=== PATIENT | female | born 1995 | race Caucasian/White ===

== ENCOUNTER 2019-11-29 10:57 | Emergency (ER) | payer BC, OTHER ==
--- NOTE | 2019-11-29 11:10 | ED ---
Throat Pain/Nasal Congestion - HPI Summary HPI Summary: 24 y/o F presenting [facility] c/o left sided jaw pain rated 4/10 starting 4 days ago. Patient woke up and felt that her upper jaw had shifted to the left. Similar has happened to her lower jaw in the past. She states it will usually resolve on its own. However this time, she reports worsening jaw pain. She is unable to open her mouth and unable to eat. She can only drink. Last night her jaw slightly shifted back in to place but not all the way. Symptoms aggravated by nothing. Symptoms alleviated by nothing. Medications reviewed. Allergies reviewed. - History of Current Complaint Chief Complaint: EDFacialInjury Time Seen by Provider: 11/29/19 11:04 Hx Obtained From: Patient Onset/Duration: Lasting Days - 4, Still Present Severity: Moderate - Allergies/Home Medications Allergies/Adverse Reactions: Allergies Allergy/AdvReac Type Severity Reaction Status Date / Time No Known Allergies Allergy Verified 11/29/19 11:02 Home Medications: Home Medications NK [No Home Medications Reported] 11/29/19 [History Confirmed 11/29/19] PMH/Surg Hx/FS Hx/Imm Hx Endocrine/Hematology History: Denies: Hx Diabetes Cardiovascular History: Denies: Hx Congestive Heart Failure, Hx Hypertension Psychiatric History: Reports: Hx Anxiety - Surgical History Surgery Procedure, Year, and Place: APPENDECTOMY 2012 Infectious Disease History: No Infectious Disease History: Denies: Traveled Outside the [place] in Last 30 Days - Family History Known Family History: Positive: Other - NEG: ovarian cyst, appendicitis - Social History Alcohol Use: Rare Substance Use Type: Reports: None Hx Tobacco Use: No Smoking Status (MU): Never Smoked Tobacco Review of Systems Negative: Fever Positive: Other - left sided jaw pain All Other Systems Reviewed And Are Negative: Yes Physical Exam - Summary Physical Exam Summary: Constitutional: Well-developed, Well-nourished, Alert. (-) Distressed Skin: Warm, Dry HENT: Normocephalic; Atraumatic; left TMJ tenderness; trismus Eyes: Conjunctiva normal Neck: Musculoskeletal ROM normal neck. (-) JVD, (-) Stridor, (-) Nuchal rigidity Cardio: Rhythm regular, rate normal, Heart sounds normal; Intact distal pulses; Radial pulses are 2+ and symmetric. (-) Murmur Pulmonary/Chest wall: Effort normal. (-) Respiratory distress, (-) Wheezes, (-) Rales Abd: Soft, (-) tenderness, (-) Distension, (-) Guarding, (-) Rebound Musculoskeletal: (-) Edema Lymph: (-) Cervical adenopathy Neuro: Alert, Oriented x3 Psych: Mood and affect Normal Triage Information Reviewed: Yes Vital Signs On Initial Exam: Initial Vitals Temp Pulse Resp BP Pulse Ox 98.2 F 88 19 160/114 100 11/29/19 11:00 11/29/19 11:00 11/29/19 11:00 11/29/19 11:00 11/29/19 11:00 Vital Signs Reviewed: Yes Procedures - Sedation Patient Received Moderate/Deep Sedation with Procedure: No Diagnostics - Vital Signs Vital Signs Temp Pulse Resp BP Pulse Ox 11/29/19 11:00 98.2 F 88 19 160/114 100 - Laboratory Lab Statement: Any lab studies that have been ordered have been reviewed, and results considered in the medical decision making process. - CT MAXILLOFACIAL CT Interpretation Completed By: Radiologist - IMPRESSION: NO FACIAL FRACTURE. NO MALOCCLUSION OR JOINT TEMPOROMANDIBULAR DISLOCATION. IF THERE IS CLINICAL CONCERN FOR INTERNAL DERANGEMENT OF THE TEMPOROMANDIBULAR JOINTS, MRI MAY BE MORE SENSITIVE. ED physician has reviewed this imaging report. Re-Evaluation - Re-Evaluation First Eval Re-Evaluation Time: 12:19 Change: Improved - she agrees to d/c EENT Course/Dx - Course Course Of Treatment: 24 y/o F p/w L jaw pain. No obvious deformity. Mild trismus. CT w/o dislocation or fracture. D/w ENT who recommends soft diet, motrin. No further imaging needed. - Diagnoses Provider Diagnoses: Jaw pain - Provider Notifications Discussed Care Of Patient With: Benson Hurtado - He recommends Motrin and soft diet, no yawning or chewing gum. He states she does not need ENT follow up. Time Discussed With Above Provider: 12:15 Discharge ED - Sign-Out/Discharge Documenting (check all that apply): Patient Departure - Discharge Plan Condition: Stable Disposition: HOME Patient Education Materials: Temporomandibular Disorder (ED) Referrals: Sofie Vaughan MD [Primary Care Provider] - Additional Instructions: You were seen in the ER for jaw pain. Your CT did not show a dislocation. Please take motrin for pain, try warm compresses, eat a soft diet, , and no yawning/chewing gum. It was a pleasure taking care of you today. - Billing Disposition and Condition Condition: STABLE Disposition: Home - Attestation Statements Document Initiated by Keonibe: Yes Documenting Scribe: Thalia Reeves Provider For Whom Dreade is Documenting (Include Credential): Lili Huddleston MD Scribe Attestation: I, Thalia Reeves, scribed for Lili Huddleston MD on 11/29/19 at 1230. Scribe Documentation Reviewed: Yes Provider Attestation: The documentation as recorded by the scribeThalia accurately reflects the service I personally performed and the decisions made by , Lili Huddleston MD Status of Scribe Document: Viewed
[2019-11-29 12:30] VITALS: BP 118/79
== END 2019-11-29 12:28 | disposition home or self-care (01) ==
LOC: ED 10:57
DX: R68.84 Jaw pain (principal); F41.9 Anxiety disorder, unspecified; Z90.89 Acquired absence of other organs
CPT/HCPCS: 70486; 99282